=== PATIENT | female | born 1945 | race Caucasian/White ===

== ENCOUNTER 2016-09-14 08:37 | Day surgery (SDC) | payer MEDICARE, OTHER ==
--- NOTE | ~2016-09-14 | EGD ---
EGD REPORT [facility] [address] [id number] NAME: MAE XIAO : 41 STATUS : REG [facility]#: [id number] AGE: 71 ADM/REG DATE : 09/14/16 MR#: [id number] REPORT SERV DATE: 09/14/16 DICTATED BY: CASSIUS SNOWDEN DATE: 09/14/16 REPORT STATUS : Draft TRANSCRIBED BY: [employer] DATE: 09/14/16 [facility] Patient Name: Mae Xiao Date of : 1945 Attending MD: CASSIUS SNOWDEN MD Procedure Date No Time: 09/14/2016 Procedure: Colonoscopy Indications: Personal history of malignant rectal neoplasm Referring MD: Leyda Frausto MD Medicines: as per anesthesia Complications: No immediate complications. Procedure: Pre-Anesthesia Assessment: - ASA Grade Assessment: III - A patient with severe systemic disease. After I obtained informed consent, the scope was passed under direct vision. Throughout the procedure, the patient's blood pressure, pulse, and oxygen saturations were monitored continuously. The PCF [id number] was introduced through the anus and advanced to the cecum, identified by appendiceal orifice and ileocecal valve. The colonoscopy was performed without difficulty. The patient tolerated the procedure. The quality of the bowel preparation was adequate to identify polyps. Findings: The perianal and digital rectal examinations were normal. There was evidence of a prior end-to-end colo-rectal anastomosis in the rectum. This was patent. This was characterized by healthy appearing mucosa. This was traversed. A sessile polyp was found in the cecum. The polyp was 3 mm in size. The polyp was removed with a cold biopsy forceps. Resection and retrieval were complete. A few small-mouthed diverticula were found in the sigmoid colon. Impression: - Patent end-to-end colo-rectal anastomosis. - One 3 mm polyp in the cecum. Resected and retrieved. - Diverticulosis in the sigmoid colon. Recommendation: - Await pathology results. - Repeat colonoscopy for surveillance based on pathology results. Procedure Code(s): --- Professional --- 24654, Colonoscopy, flexible, proximal to splenic flexure; with biopsy, single or multiple EGD REPORT [address] [address] NAME: MAE XIAO : 41 STATUS : REG [facility] PAT#: [id number] AGE: 71 ADM/REG DATE : 09/14/16 MR#: [id number] REPORT SERV DATE: 09/14/16 DICTATED BY: CASSIUS SNOWDEN DATE: 09/14/16 REPORT STATUS : Draft TRANSCRIBED BY: [employer] DATE: 09/14/16 Diagnosis Code(s): --- Professional --- Z98.0, Intestinal bypass and anastomosis status D12.0, Benign neoplasm of cecum K57.30, Diverticulosis of large intestine without perforation or abscess without bleeding Z85.048, Personal history of other malignant neoplasm of rectum, rectosigmoid junction, and anus CPT copyright 2013 [employer]. All rights reserved. The codes documented in this report are preliminary and upon [employer] salvage [employer] review may be revised to meet current compliance requirements. CASSIUS SNOWDEN MD 09/14/2016 10:25 AM This report has been signed electronically. Number of Addenda: 0 Note Initiated On: 09/14/2016 9:56 AM Scope Withdrawal Time 0 hours 10 minutes 5 seconds [id number] [id number]
[~2016-09-14 08:37] MED LIST: ALTACE10 MG PO; CITRACAL PO; CRESTOR5 MG PO; LANTANOPROST OPH; PATADAY OPH; PRESERVISION A1 EAC1 PO; XALAT OPH
== END 2016-09-14 23:59 | disposition home or self-care (01) ==
LOC: DMU 08:37
PROVIDERS: Internal Medicine Gastroenterology
PROC: 0DBH8ZZ Excision of Cecum, Via Natural or Artificial Opening Endoscopic (ICD-10-PCS; principal; 2016-09-14 09:30)
DX: Z12.11 Encounter for screening for malignant neoplasm of colon (principal); K63.5 Polyp of colon; Z98.0 Intestinal bypass and anastomosis status; K57.30 Diverticulosis of large intestine without perforation or abscess without bleeding; Z85.048 Personal history of other malignant neoplasm of rectum, rectosigmoid junction, and anus; H91.90 Unspecified hearing loss, unspecified ear; H35.30 Unspecified macular degeneration; I10 Essential (primary) hypertension; E78.00 Pure hypercholesterolemia, unspecified; Z79.899 Other long term (current) drug therapy
CPT/HCPCS: 88305